=== PATIENT | male | born 1990 | race Two or more races ===

== ENCOUNTER 2018-06-16 11:16 | Emergency (ER) | payer BC ==
[~2018-06-16] VITALS: Ht 185.4 cm; Wt 79.4 kg
--- NOTE | 2018-06-16 12:23 | NUR ---
ED Nurse Note: PT WALKED IN TO ER TODAY FROM HOME. AOX4. PT C/O ANTERIOR NECK PAIN, 6 AFTER FALL X LAST NIGHT. PT STATES HE HIT THE BACK OF HIS HEAD BUT DENIES ANY PAIN IN THAT AREA OR LOC. FULL ROM OF NECK. PT DENIES ANY NUMBNESS OR TINGLING. AMBULATORY WITH STEADY GAIT.
[2018-06-16 12:24] VITALS: BP 126/78
[2018-06-16] MEDS ORDERED: Ketorolac 30mg Inj IM ONE (12:45)
[2018-06-16] MEDS ORDERED: Methocarbamol 500mg tab ORAL ONE (12:45)
--- NOTE | 2018-06-16 12:54 | Emergency Room Report ---
History of Present Illness General Chief Complaint: Multiple Trauma/Fall Source: Patient Present Illness HPI 27-year-old male patient presents the ER with multiple complaints status post injury yesterday. 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 Reports he hit his head upper back and his neck when he fell to the ground. Reports brief loss of consciousness at that time. Denies vomiting or vision changes. Reports neck pain and anterior chest pain. Reports pain with movement of his right upper extremity secondary to the chest pain. Denies pain radiating down his arms. Denies fever, shortness of breath, abdominal pain. Reports able to play without difficulty. States is not taking medications for the symptoms. States he was approximately 4 feet in the air when he fell. Allergies: Coded Allergies: No Known Allergies (Unverified , 06/16/18) Patient History Past Medical History: see triage record Reviewed Nursing Documentation: PMH: Agreed; PSxH: Agreed Nursing Documentation-PMH Past Medical History: No History, Except For Review of Systems All Other Systems: negative except mentioned in HPI Physical Exam Vital Signs Date Time Temp Pulse Resp B/P (MAP) Pulse Ox O2 Delivery O2 Flow Rate FiO2 06/16/18 11:32 98.6 84 20 128/74 97 Room Air Sp02 EP Interpretation: reviewed, normal General Appearance: well appearing, no apparent distress, alert, GCS 15, non- toxic Head: normocephalic, atraumatic, other - Negative vazquez sign, negative raccoon eyes, no hematoma, no skull depression, negative hemotympanum bilateral Eyes: bilateral eye normal inspection, bilateral eye PERRL ENT: hearing grossly normal, normal pharynx, no angioedema, normal voice, TMs + canals normal, uvula midline, moist mucus membranes Neck: full range of motion, no bony tend Respiratory: lungs clear, normal breath sounds, no rhonchi, no respiratory distress, no accessory muscle use, no wheezing, speaking full sentences, other - Upper anterior chest tender to palpation, no flail chest, no bony deformity Cardiovascular #1: regular rate, rhythm, no edema Cardiovascular #2: 2+ radial (R), 2+ radial (L) Gastrointestinal: non tender, soft, no mass, non-distended, no guarding, no rebound Musculoskeletal: back normal, digits/nails normal, gait/station normal, normal range of motion, non-tender Neurologic: alert, oriented x3, responsive, assembly associate III-XII nml as tested, motor strength/tone normal, SLR negative, sensory intact, cerebellar normal, normal gait, speech normal Psychiatric: mood/affect normal Skin: no rash Medical Decision Making PA Attestation Dr. Saenz is my supervising Physician whom patient management has been discussed with. Diagnostic Impression: Primary Impression: Multiple injuries due to trauma Additional Impressions: Head injury Contusion of chest Neck injury ER Course Pt. presents to the ED c/o neck chest and head pain status post fall injury 1 day ago. Ddx considered but are not limited to fracture, sprain, strain, contusion, dislocation, ICH, skull fracture, concussion. No erythema, no warmth to touch, no fever, nontoxic appearing, low suspicion for septic joint. Vital signs: are WNL, pt. is afebrile Ordered X-ray, CT and pain medication. ER COURSE Provided with pain medication. CT head negative for intracranial hemorrhage or bleed, sinusitis noted. Discuss results with the patient. Provided patient with copy of results. Instructed patient to followup with PCP and discuss results of report with patient, discuss need for further treatment and referral. Informed patient take Claritin or Benadryl [id number] for sinusitis. An X-ray of the cervical spine negative for acute disease per the preliminary reading. X-ray of the chest was negative for acute disease or pneumothorax per the preliminary reading. Likely muscular skeletal pain advised patient pain symptoms may worsen in coming days, provide patient with Tylenol No. 3 and Robaxin, advised patient to begin taking Motrin after completion of Tylenol 3 medication, advised patient that medication may cause drowsiness, do not take prior to drinking, driving, operating machinery. Patient instructed on RICE method: rest, ice, compression, elevation. Patient instructed on rest, ice and heat. Contact information for orthopedic urgent care provided, follow-up with urgent care if unable to followup with primary care provider and get referral to orthopedic shoe fitter. Followup with primary care provider. Discuss referral to ortho/pain management/ PT as needed. Discuss further imaging with MRI/CT as needed. ER precautions given. DISCHARGE: At this time pt. is stable for d/c to home. Patient is resting comfortably, in no acute distress, nontoxic appearing, talking without difficulty. Will provide printed patient care instructions, and any necessary prescriptions. Patient instructed to follow with primary care provider in 3 - 5 days and to request further follow-up as needed. Care plan and follow up instructions have been discussed with the patient prior to discharge. Take medications as directed. Patient questions asked and answered. Patient reports understanding and agreement to treatment plan. ER precautions given, patient instructed to return to ER immediately for any new or worsening of symptoms. - Please note that this Emergency Department Report was dictated using [employer] hr generalist technology software, occasionally this can lead to erroneous entry secondary to interpretation by the dictation equipment. Chest X-Ray Diagnostic Results Chest X-Ray Diagnostic Results : Chest X-Ray Ordered: Yes # of Views/Limited/Complete: 2 View Indication: Chest Pain EP Interpretation: Yes PA Xray: Interpretation reviewed, by supervising MD, and agrees with findings. Interpretation: no consolidation, no effusion, no pneumothorax, no acute cardiopulmonary disease Impression: No acute disease ELLI Scribe Nithin Quiñones PA-C Other X-Ray Diagnostic Results Other X-Ray Diagnostic Results : X-Ray ordered: Cervical spine # of Views/Limited Vs Complete: 3 View Indication: Pain EP Interpretation: Yes PA Xray: Interpretation reviewed, by supervising MD, and agrees with findings. Interpretation: no dislocation, no soft tissue swelling, no fractures Impression: No acute disease PA Scribe Nithin Quiñones PA-C CT/MRI/US Diagnostic Results CT/MRI/US Diagnostic Results : Imaging Test Ordered: CT head Impression No mass effect, edema or acute bleed. Sinusitis Last Vital Signs Date Time Temp Pulse Resp B/P (MAP) Pulse Ox O2 Delivery O2 Flow Rate FiO2 06/16/18 12:24 98.4 82 18 126/78 98 Room Air Status: improved Disposition: HOME, SELF-CARE Condition: Stable Scripts Ibuprofen* (MOTRIN*) 600 Mg Tablet 600 MG ORAL Q8H PRN for For Pain, #30 TAB 0 Refills Prov: Lee Quiñones P.A. 06/16/18 Acetaminophen With Codeine (T#3) (TYLENOL #3 TAB*) Y Tab 1 TAB ORAL Q6HR PRN for For Pain, #10 TAB Prov: Lee Quiñones P.A. 06/16/18 Methocarbamol* (ROBAXIN*) 500 Mg Tablet 500 MG PO TID, #21 TAB 0 Refills Prov: Lee Quiñones 06/16/18 Patient Instructions: Chest Contusion, [id number], Fall Prevention in the Home, [id number], Head Injury, Adult, [id number] Additional Instructions: Patient instructed to follow up with primary care provider and discuss further referral to orthopedics/physical therapy/pain management as needed. If unable to followup with PCP, followup with orthopedic urgent care in 5-7 days , call to schedule appointment. Patient instructed on RICE method: rest, ice, compression, elevation. Advised on rest, ice, heat. Take medications as directed. Medication may cause drowsiness, do not take prior to drinking, driving, operating heavy machinery. Patient questions asked and answered. ER precautions given, patient instructed to return to ER immediately for any new or worsening of symptoms. [facility] [address] [facility] [address] [facility] [place], [address] [email or web address] Lee Quiñones Jun 16, 2018 12:54
--- NOTE | 2018-06-16 13:20 | Diagnostic Imaging Report ---
Indication: Headache Technique: Contiguous 5 mm thick transaxial imaging of the head obtained in a Siemens Sensation [address] scanner. Soft tissue and bone windows generated. Automatic Exposure Control was utilized. Total Dose length Product (DLP): 1368.[address] Dose Index Volume (CTDIvol): 70.38 mGy Comparison: none Findings: The size and configuration of the cortical sulci, basal cisterns, and ventricles are within normal limits for age. There is no mass effect, midline shift, or edema identified. There is no evidence of acute hemorrhage or abnormal intra-axial or extra-axial fluid collections. The bones and soft tissues are unremarkable. Moderate anterior ethmoid and frontal sinus opacification demonstrated. Impression: No mass effect, edema or acute bleed. Sinusitis The CT scanner at [facility] is accredited by the [employer] and the scans are performed using dose optimization techniques as appropriate to a performed exam including Automatic Exposure control.
[2018-06-16] MEDS ORDERED: ACETAMINOPHEN-1 EAC1 ORAL (13:54)
[2018-06-16] MEDS ORDERED: ROBAXIN500 MG PO (13:54)
[2018-06-16] MEDS ORDERED: IBUPROFEN600 MG ORAL (13:54)
--- NOTE | 2018-06-16 13:54 | Diagnostic Imaging Report ---
Indication: Neck Pain Findings: 3 views of the cervical spine were obtained. There is no acute fracture identified. Alignment is normal. The open-mouth odontoid view shows an intact dens and good alignment of the lateral masses with respect to the body of C2. There is no soft tissue swelling. Impression: Negative cervical spine examination.
--- NOTE | 2018-06-16 13:56 | Diagnostic Imaging Report ---
Indication: Chest pain Comparison: None 2 views of the chest obtained. Findings: Cardiomediastinal silhouette and pulmonary vascularity are within normal limits for age. The diaphragmatic contour is smooth and costophrenic angles are sharp. No pleural effusions are identified. The bones are unremarkable. Impression: No acute disease
[2018-06-16 14:03] VITALS: BP 122/74
--- NOTE | 2018-06-16 14:04 | NUR ---
ED Nurse Note: PT SITTING PEACEFULLY IN CHAIR IN NAD. AOX4. PRESCRIPTIONS AND DISCHARGE PAPERWORK EXPLAINED TO PT. PT VERBALIZES UNDERSTANDING AND ALL QUESTIONS ANSWERED. PRESCRIPTIONS AND DISCHARGE PAPERWORK GIVEN TO PT AND ID WRISTBAND REMOVED. PT WALKED OUT OF ER WITH STEADY GAIT.
== END 2018-06-16 14:10 | disposition home or self-care (01) ==
LOC: EMR 13:50
DX: S09.90XA Unspecified injury of head, initial encounter (principal); S20.219A Contusion of unspecified front wall of thorax, initial encounter; S19.9XXA Unspecified injury of neck, initial encounter; W17.89XA Other fall from one level to another, initial encounter; Y92.9 Unspecified place or not applicable
CPT/HCPCS: 70450; 71046; 72040; 96372; 99284; J1885